=== PATIENT | female | born 1960 | race African-American/Black ===

== ENCOUNTER 2019-11-10 16:24 | Emergency (ER) | payer MEDICAID ==
[~2019-11-10] VITALS: Ht 170.2 cm; Wt 66.2 kg
[2019-11-10 16:26] VITALS: BP 160/80
--- NOTE | 2019-11-10 17:30 | NUR ---
PATIENT WHEELCHAIRED TO CHAIR B.
[2019-11-10] MEDS ORDERED: HYDROcodone/APAP 7.5/325 MG 1 TAB PO ONE (17:55)
[2019-11-10] MEDS ORDERED: KETOROLAC 60 MG/2 ML VIAL IM ONE (17:55)
[2019-11-10 18:47] VITALS: BP 130/79
--- NOTE | 2019-11-10 18:47 | NUR ---
CITLALLI OKAY TO DISCHARGE PATIENT. Patient discharged with v/s stable. Written and verbal after care instructions given and explained. Patient alert, oriented and verbalized understanding of instructions. Ambulatory with steady gait. All questions addressed prior to discharge. ID band removed. Patient advised to follow up with PMD. Rx of MEDROL; IBUPROFEN; given. Patient educated on indication of medication including possible reaction and side effects. Opportunity to ask questions provided and answered. PATIENT SEEN AND ASSESSED BY SAMUEL BEARD.
== END 2019-11-10 18:47 | disposition home or self-care (01) ==
LOC: MED 16:24
DX: S39.012A Strain of muscle, fascia and tendon of lower back, initial encounter (principal); J45.909 Unspecified asthma, uncomplicated; G89.29 Other chronic pain; X58.XXXA Exposure to other specified factors, initial encounter; Y93.89 Activity, other specified; Y92.89 Other specified places as the place of occurrence of the external cause; Y99.8 Other external cause status
CPT/HCPCS: 72100; 81002; 81025; 96372; 99283; J1885; Q0163